=== PATIENT | male | born 1995 | race African-American/Black ===

== ENCOUNTER 2024-05-12 11:30 | Outpatient (AMB) | payer BC, SELFPAY ==
--- NOTE | 2024-05-12 11:40 | A.OFFPC_ITS ---
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 Intake Note: New patient visit Chemist Enzymes Required: No Allergies No Known Allergies Allergy (Verified 05/12/24 11:40) Medication List - Last Reconciled 05/12/24 by Moni Benitez PA-C No Known Home Meds Tobacco use date assessed: 05/12/24 Dental Screening Dental Screen Date: 05/12/24 Did you have a dental visit in the last 12 months?: Yes Did you have a dental problem in the last 6 months where you did not have access to dental care?: No Was dental information given to patient?: Patient has dentist HPI 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 He is transferring from pediatrics. Psych: He has a hx of anxiety and adhd in childhood and was on medication in the past but thinks he has coping mechanisms now and does not need anything. CV: Blood pressure today in the office initially is 143/92. A little later the repeated blood pressure was 126/88. Endo: he thinks at one point he was a prediabetic. No polyuria or polydipsia. Unknown fam hx of dm. Uro: He is worried about the possibility of testicular cancer. States that sometimes his testicles feel swollen but no pain or specific mass. Both of his maternal cousins have had testicular cancer. surgical hx of appendectomy. Maternal grandmother had breast ca, maternal aunt also had heart disease and breast cancer (unknown genetic status), cousins have had testicular cancer [facility] Surgical History (Updated 05/12/24 @ 11:42 by Janel Swain CMA) Hx of appendectomy Family History (Updated 05/12/24 @ 11:44 by Janel Swain CMA) Maternal Aunt Breast cancer Maternal Grandmother Breast cancer Other Lupus (systemic lupus erythematosus) Testicular cancer Social History Housing: Apartment Patient Tobacco Use Status: Current everyday Tobacco user Cigarettes Per Day: 5 Years Smoked: 9 e-Cigarette/Vaping Use: Never Used Second Hand Smoke Exposure: No service: No Current occupational status: employed 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 1. Little interest or pleasure in doing things: not at all 2. Feeling down, depressed, or hopeless: not at all 3. Trouble falling or staying asleep, or sleeping too much: not at all 4. Feeling tired or having little energy: not at all 5. Poor appetite or overeating: not at all 6. Feeling bad about yourself - or that you are a failure or have let yourself or your family down: not at all 7. Trouble concentrating on things, such as reading the newspaper or watching television: not at all 8. Moving or speaking so slowly that other people could have noticed. Or the opposite - being so fidgety or restless that you have been moving around a lot more than usual: not at all 9. Thoughts that you would be better off or of hurting yourself in some way: not at all Total score: 0 Depression Screening Interpretation: Negative Depression Screening Done: Yes 98164 - PHQ-9 Billing: Yes Source: Developed by Drs. Saturnino Castro, Yaa Alexandra, Anderson Thopmson and colleagues, with an educational bev from [employer]. Thrive Questionnaire I am a: Patient What is your living situation today?: I have a steady place to live Within the past 12 months, did the food you bought not last and you didn't have the money to get more?: Never true Within the past 12 months, did you worry whether your food would run out before you got money to buy more?: Never true Do you have trouble paying for medicines?: No Do you have trouble getting transportation to medical appointments?: No Do you have trouble paying your heating and electricity bill?: No Do you have trouble taking care of your child, family member or friend?: No Do you have trouble with day-to-day activities such as bathing, preparing meals, shopping, managing finances, etc.?: No Are you currently unemployed and looking for a job?: No Are you interested in more education?: No Please select the resources that you would like help with: None Currently or been in a relationship where the following occur: No concerns reported THRIVE Score: 0 AUDIT C Alcohol Use Questionnaire (AUDIT-C) 1. How often do you have a drink containing alcohol?: 2-4 times a month 2. How many drinks containing alcohol do you have on a typical day when you are drinking?: 1 or 2 3. How often do you have six or more drinks on one occasion?: Never Total Score: 2 Score Reviewed/Action Taken: Yes SHAUN-7 AMB Questionnaire SHAUN-7 Feeling nervous, anxious, or on edge: 0 = Not at all Not being able to stop or control worryin = Not at all Worrying too much about different things: 0 = Not at all Trouble relaxin = Not at all Being so restless that it is hard to sit still: 0 = Not at all Becoming easily annoyed or irritable: 0 = Not at all Feeling afraid as if something awful might happen: 0 = Not at all Total SHAUN-7 score (0-4 normal; 5-9 mild; 10-14 moderate; 15-21 severe): 0 Source: Developed by Drs. Saturnino Castro, Yaa Alexandra, Anderson Thompson and colleagues, with an educational bev from [employer]. SHAUN-7 Assessment Billing SHAUN-7 Assessment Tool: SHAUN-7 Assessment 21200 Physical exam (Primary Care) Vital Signs: Last Vital Signs Pulse 89 05/12/24 11:44 BP 143/92 H 05/12/24 11:44 Pulse Ox 98 05/12/24 11:44 Oxygen Delivery Method Room Air 05/12/24 11:44 BMI result Body Mass Index 32.7 BMI Assessment/Plan discussion: High BMI High, discussed plan: lifestyle, dietary and physical activity Depression Screening Interpretation: Negative Currently or been in a relationship where the following occur: No concerns reported Const Orientation/consciousness: patient oriented x3 HENMT Ears: hearing grossly normal bilaterally Neck Thyroid: Thyroid normal Lymphatic: no lymphadenopathy noted Resp Auscultation: clear to auscultation bilaterally Cardio Rate: regular rate Rhythm: regular rhythm Heart sounds: S1 normal heart sound present and S2 normal heart sound present GI Inspection: Yes normal to inspection Palpation (GI): Soft to palpation and Other GI palpation findings present (nontender, no cva tenderness) Auscultation: normoactive bowel sounds Rectal Exam - Male: Yes deferred Other: Declined Skin General skin exam: no rashes or lesions noted Neuro General: patient oriented x3, gait normal and no focal motor deficits Coding Level of Care Code New Pt Level 3 (55101) Complex EM visit Add On G2211 Diagnoses Prediabetes R73.03 Tobacco abuse Z72.0 Elevated blood pressure reading R03.0 Swelling of the testicles N50.89 Additional Codes PHQ-9 - 73400 - PHQ-9 Billing: Yes ([id number]) SHAUN-7 Assessment Billing - SHAUN-7 Assessment Tool: SHAUN-7 Assessment 43980 ([id number]) Assessment & Plan Assessment & Plan (1) Prediabetes: Code(s): R73.03 - Prediabetes Category: Medical Plan: Labs ordered today. We will check A1c. (2) Tobacco abuse: Code(s): Z72.0 - Tobacco use Category: Medical Plan: Encouraged smoking cessation. Offered Chantix or Wellbutrin but declines at this point. (3) Elevated blood pressure reading: Code(s): R03.0 - Elevated blood-pressure reading, without diagnosis of hypertension Category: Medical Plan: Advised to reduce caffeine and cigarettes. Encouraged dietary and lifestyle modifications. We will recheck in 1-2 months. (4) Swelling of the testicles: Code(s): N50.89 - Other specified disorders of the male genital organs Category: Medical Plan: Ultrasound and urine ordered. Labs ordered. We will follow up pending test results. Orders: Orders Complete Blood Count Auto Diff Today R03.0 - Elevated blood-pressure reading, without diagnosis of hypertension, R73.03 - Prediabetes, Z11.3 - Encounter for screening for infections with a predominantly sexual mode of transmission, Z72.0 - Tobacco use Hemoglobin A1c Today R03.0 - Elevated blood-pressure reading, without diagnosis of hypertension, R73.01 - Impaired fasting glucose, R73.03 - Prediabetes, Z11.3 - Encounter for screening for infections with a predominantly sexual mode of transmission, Z72.0 - Tobacco use TSH reflex Free T4 Today R03.0 - Elevated blood-pressure reading, without diagnosis of hypertension, R73.03 - Prediabetes, Z11.3 - Encounter for screening for infections with a predominantly sexual mode of transmission, Z72.0 - Tobacco use HIV Ab/Ag Today R03.0 - Elevated blood-pressure reading, without diagnosis of hypertension, R73.03 - Prediabetes, Z11.3 - Encounter for screening for infections with a predominantly sexual mode of transmission, Z20.2 - Contact with and (suspected) exposure to infections with a predominantly sexual mode of transmission, Z72.0 - Tobacco use Hepatitis C Antibody Today R03.0 - Elevated blood-pressure reading, without diagnosis of hypertension, R73.03 - Prediabetes, Z11.3 - Encounter for screening for infections with a predominantly sexual mode of transmission, Z20.2 - Contact with and (suspected) exposure to infections with a predominantly sexual mode of transmission, Z72.0 - Tobacco use Syphilis Screen Today R03.0 - Elevated blood-pressure reading, without diagnosis of hypertension, R73.03 - Prediabetes, Z11.3 - Encounter for screening for infections with a predominantly sexual mode of transmission, Z20.2 - Contact with and (suspected) exposure to infections with a predominantly sexual mode of transmission, Z72.0 - Tobacco use Comprehensive [place]. Panel Fast Today R03.0 - Elevated blood-pressure reading, without diagnosis of hypertension, R73.03 - Prediabetes, Z11.3 - Encounter for screening for infections with a predominantly sexual mode of transmission, Z72.0 - Tobacco use Lipid Panel Today R03.0 - Elevated blood-pressure reading, without diagnosis of hypertension, R73.03 - Prediabetes, Z11.3 - Encounter for screening for infections with a predominantly sexual mode of transmission, Z72.0 - Tobacco use CT NG by PCR Today R03.0 - Elevated blood-pressure reading, without diagnosis of hypertension, R73.03 - Prediabetes, Z11.3 - Encounter for screening for infections with a predominantly sexual mode of transmission, Z20.2 - Contact with and (suspected) exposure to infections with a predominantly sexual mode of transmission, Z72.0 - Tobacco use US scrotum Today N50.89 - Other specified disorders of the male genital organs
[2024-05-12 11:44] VITALS: BP 143/92; PULSE 89; O2SAT 98; BMI 32.7
[2024-05-12 11:52] VITALS: BP 126/88
== END 2024-05-12 12:24 | disposition home or self-care (01) ==
PROVIDERS: PCP Family Medicine; Visit Provider Physician Assistant
DX: Z23 Encounter for immunization (principal)

== ENCOUNTER → 2024-05-12 11:30 | Outpatient (BNVA) | payer BC, SELFPAY | PROVIDERS: PCP Family Medicine; Visit Provider Physician Assistant | DX: R73.03 Prediabetes (principal); Z23 Encounter for immunization; R03.0 Elevated blood-pressure reading, without diagnosis of hypertension; N50.89 Other specified disorders of the male genital organs; Z72.0 Tobacco use | CPT/HCPCS: 90471; 90656; 96127 ==

== ENCOUNTER 2024-05-19 16:13 | Outpatient (REF) | payer BC, SELFPAY ==
--- NOTE | ~2024-05-19 | US_ITS ---
CLINICAL HISTORY: N50.89 - Other specified disorders of the male genital organs US Scrotum with Doppler Comparison: None Findings: Right testicle normal size and echotexture, 4.3 x 2.9 x 3.3 cm. Left testicle normal size and echotexture, 4 x 2.5 x 3.4 cm. Color Doppler and arterial/venous spectral tracings of testicles within normal limits. Epididymides are unremarkable. No varicoceles. No hydroceles. IMPRESSION: Normal scrotal ultrasound. No evidence of torsion. This document has been electronically signed by: Ximena Rolle MD on 05/23/2024 13:44:38
== END 2024-05-19 16:14 | disposition home or self-care (01) ==
LOC: HO.US 16:13
PROVIDERS: PCP Physician Assistant; Visit Provider Physician Assistant
DX: N50.89 Other specified disorders of the male genital organs (principal)
CPT/HCPCS: 76870

== ENCOUNTER → 2024-05-19 16:15 | Outpatient (BNV) | payer BC, SELFPAY | PROVIDERS: PCP Physician Assistant; Visit Provider Nuclear Medicine | DX: N50.89 Other specified disorders of the male genital organs (principal) | CPT/HCPCS: 76870; 93976 ==

== ENCOUNTER 2024-06-04 08:47 | Outpatient (REF) | payer BC, SELFPAY ==
--- OUTSIDE RECORDS SUMMARY | 2024-06-04 08:50 | XMS_ITS | Clinical Summary ---
Author Organization [facility] ity Address [address] [place] [address] Care Team Providers Care Traffic Rate Computer Name Role Phone Unavailable Primary Care Provider Unavailabl e Social History Tobacco Use Types Packs/Day Years Used Date Smoking Tobacco: Never Assessed Sex and Gender Information Value Date Recorded Sex Assigned at Not on file Gender Identity Not on file Sexual Orientation Not on file Plan of Treatment Health Maintenance Due Date Last Done Comments DTaP,Tdap,and Td Vaccines (1 - Tdap) 2012 Hepatitis B Vaccines (1 of 3 - 19+ 3-dose series) 2012 Depression Screening 04/09/2022 HIV Screening 04/09/2022 Hepatitis C Screening 04/09/2022 Social Influencers of Health Screening 04/09/2022 COVID-19 Vaccine (2023-2 5 season) 2024 Influenza Vaccine (#1) 2024 HIB Vaccines Aged Out No longer eligi ble based on patient's age to complete this topic HPV Vaccines Aged Out No longer eligi ble based on patient's age to complete this topic Hepatitis A Vaccines Aged Out No long er eligible based on patient's age to complete this topic IPV Vaccines Aged Out No longer eligi ble based on patient's age to complete this topic MMR Vaccines Aged Out No longer eligi ble based on patient's age to complete this topic Meningococcal ACWY Vaccine Aged Out N o longer eligible based on patient's age to complete this topic Pneumococcal Vaccine: Pediat rics (0 to 5 Years) and At-Risk Patients (6 to 64 Years) Aged Out No longer eligible b ased on patient's age to complete this topic RSV Immunization Patients Un elaina 20 months Aged Out No longer eligible b ased on patient's age to complete this topic Varicella Vaccines Aged Out No longer eligible based on patient's age to complete this topic
[2024-06-04 09:09] LABS: MANUAL DIFF FLAG NO
[2024-06-04 09:37] LABS: Basophils Percent Auto 0.4 % (0-2); Eosinophils Absolute Auto 0.2 X10*3/uL (0.0-0.4); Hematocrit 47.4 % (42.0-52.0); Imm Gran Abs Auto 0.01 X10*3/uL (0.00-0.03); Imm Gran Pct Auto 0.1 % (0.0-0.4); Lymphocytes Absolute Auto 2.7 X10*3/uL (1.2-4.9); Lymphocytes Percent Auto 37.6 % (20-40); Mean Corpuscular HGB Conc 33.8 g/dl (31.0-36.0); Mean Corpuscular Hemoglobin 29.8 pg (27.0-33.0); Mean Corpuscular Volume 88.3 fL (80.0-98.0); Mean Platelet Volume 11.1 fL (9.4-12.4); Monocytes Absolute Auto 0.6 X10*3/uL (0.1-1.2); Monocytes Percent Auto 7.9 % (2-11); Neutrophils Absolute Auto 3.7 x10*3/uL (2.0-8.3); Platelet Count 233 X10*3/uL (160-400); Red Blood Count 5.37 X10*6/uL (4.60-5.80); Red Cell Distribution Width 13.2 % (11.0-16.0); White Blood Count 7.2 X10*3/uL (4.8-10.8)
[2024-06-04 09:57] LABS: Estimated Average Glucose 103 mg/dL; Hemoglobin A1C 134.9447 umol/L; Hemoglobin A1c % 5.2 % (<6.0); Total Hemoglobin (HGBA1C) 4047.1566 umol/L
[2024-06-04 10:14] LABS: Alanine Aminotransferase 48 U/L (0-40); Albumin Level 4.4 g/dL (3.5-5.0); Alkaline Phosphatase 67 U/L (39-117); Anion Gap 10 (12-20); Aspartate Amino Transferase 28 U/L (5-37); Bilirubin Total 0.6 mg/dL (0.0-1.0); Blood Urea Nitrogen 13 mg/dL (9-16); Calcium 9.1 mg/dL (8.4-10.2); Carbon Dioxide 26 mmol/L (22-29); Chloride 108 mmol/L (96-108); Cholesterol 199 mg/dL (<200); Estimated Glomerular Filt Rate > 60; Glucose Fasting 97 mg/dL (60-99); HDL Cholesterol 36 mg/dL (>40); LDL Cholesterol Calculated 149 mg/dL (<100); Potassium 4.3 mmol/L (3.3-5.1); Sodium 140 mmol/L (135-145); Total Protein 7.6 g/dL (6.5-8.0); Triglycerides 73 mg/dL (<150)
[2024-06-04 10:31] LABS: HIV AB/AG Nonreactive (Nonreactive); HIV Num 1 0.04 S/CO (0.00-0.99); TSH reflex Free T4 0.69 uIU/mL (0.32-4.0); ~HepC Num1 0.06 S/CO (0.00-0.79); ~Hepatitis C Antibody Nonreactive (Nonreactive)
[2024-06-04 11:34] LABS: Syphilis Screen Nonreactive (Nonreactive)
[2024-06-04 11:49] LABS: CT PCR NOT DETECTED (Not Detect.); NG PCR NOT DETECTED (Not Detect.)
== END 2024-06-04 08:48 | disposition home or self-care (01) ==
LOC: HO.LAB 08:47
PROVIDERS: PCP Physician Assistant; Visit Provider Physician Assistant
DX: R73.03 Prediabetes (principal); Z72.0 Tobacco use; R03.0 Elevated blood-pressure reading, without diagnosis of hypertension; Z11.3 Encounter for screening for infections with a predominantly sexual mode of transmission; Z20.2 Contact with and (suspected) exposure to infections with a predominantly sexual mode of transmission; R73.01 Impaired fasting glucose
CPT/HCPCS: 80053; 80061; 83036; 84443; 85025; 86780; 86803; 87389; 87491; 87591

== ENCOUNTER 2024-07-14 15:27 | Outpatient (AMB) | payer BC, SELFPAY ==
--- NOTE | 2024-07-14 15:29 | A.OFFPC_ITS ---
Vital Signs 07/14/24 15:31 Height 5 ft 11.5 in Weight 242 lb 6 oz BMI 33.3 BP 116/62 Blood Pressure Location Lt brachial Position Sitting Respiration 14 Pulse 86 Pulse Source Pulse Oximeter Pulse Oximetry (%) 98 Oxygen Delivery Method Room Air Intake Visit Reasons: bp check and physical Intake Note: Physical and blood pressure check. Field Representative Required: No Allergies No Known Allergies Allergy (Verified 07/14/24 15:31) Medication List - Last Reconciled 07/14/24 by Moni Benitez PA-C carbamide peroxide 6.5% (Debrox) 5 drps otic (ear) right Q12H 7 days Tobacco use date assessed: 07/14/24 Dental Screening Dental Screen Date: 05/12/24 HPI bp check and physical HPI Details Patient is a 29-year-old male who presents today for a physical exam. He wants to address his adhd. Psych: He has a hx of anxiety and adhd in childhood and was on medication in the past but can not recall the name of it. He states that he lacks motivation at times and struggles with focus and attention to detail. CV: Blood pressure today in the office is WNL. surgical hx of appendectomy. Maternal grandmother had breast ca, maternal aunt also had heart disease and breast cancer (unknown genetic status), cousins have had testicular cancer [facility] Surgical History (Updated 05/12/24 @ 11:42 by Janel Swain CMA) Hx of appendectomy Family History (Updated 05/12/24 @ 11:44 by Janel Swain CMA) Maternal Aunt Breast cancer Maternal Grandmother Breast cancer Other Lupus (systemic lupus erythematosus) Testicular cancer Social History Housing: Apartment Patient Tobacco Use Status: Current everyday Tobacco user Cigarettes Per Day: 5 Years Smoked: 9 e-Cigarette/Vaping Use: Never Used Second Hand Smoke Exposure: No service: No Current occupational status: employed 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 Current occupational exposures/hazards: No Cognitive needs: No Hearing needs: No Vision needs: Yes (glasses) Questionnaire Thrive Questionnaire Date Thrive assessed: 05/12/24 I am a: Patient What is your living situation today?: I have a steady place to live Within the past 12 months, did the food you bought not last and you didn't have the money to get more?: Never true Within the past 12 months, did you worry whether your food would run out before you got money to buy more?: Never true Do you have trouble paying for medicines?: No Do you have trouble getting transportation to medical appointments?: No Do you have trouble paying your heating and electricity bill?: No Do you have trouble taking care of your child, family member or friend?: No Do you have trouble with day-to-day activities such as bathing, preparing meals, shopping, managing finances, etc.?: No Are you currently unemployed and looking for a job?: No Are you interested in more education?: No Please select the resources that you would like help with: None Currently or been in a relationship where the following occur: No concerns reported THRIVE Score: 0 Physical exam (Primary Care) Vital Signs: Last Vital Signs Pulse 86 07/14/24 15:31 Resp 14 07/14/24 15:31 BP 116/62 07/14/24 15:31 Pulse Ox 98 07/14/24 15:31 Oxygen Delivery Method Room Air 07/14/24 15:31 BMI result Body Mass Index 33.3 Tobacco/Smoking Status: Tobacco use Status Tobacco use date assessed 07/14/24 07/14/24 15:34 Patient Tobacco Use Status Current everyday Tobacco 07/14/24 15:34 e-Cigarette/Vaping Use Never Used 07/14/24 15:34 Thrive Assessment: Date of Thrive Assessment Date Thrive assessed 05/12/24 07/14/24 15:34 Currently or been in a relationship where the following occur: No concerns reported Const Orientation/consciousness: patient oriented x3 HENMT Ears: hearing grossly normal bilaterally and TM's normal bilaterally General nose exam: No nasal polyps present Face and sinus: Yes sinuses nontender Mouth: Normal oral and palatal mucosa present Eyes Pupils: Equal, round and reactive pupils present EOM: EOMs intact bilaterally Neck Neck: Yes full ROM and Yes no lymphadenopathy Thyroid: Thyroid normal Chest Chest palpation & inspection: normal inspection of the chest Resp Auscultation: clear to auscultation bilaterally Cardio Rate: regular rate Rhythm: regular rhythm Heart sounds: S1 normal heart sound present and S2 normal heart sound present Peripheral pulses: Peripheral pulses 2+ throughout GI Other: Soft, nontender Auscultation: normal bowel sounds Rectal Exam - Male: Yes deferred General: Yes no CVA tenderness Back/Spine/Pelvis Other: Nontender Back: no CVA tenderness Skin General skin exam: no rashes or lesions noted Neuro General: patient oriented x3, gait normal, CN's II-XI intact bilaterally and deep tendon reflexes 2+ bilaterally Cranial nerves: Yes Equal, round and reactive pupils present Motor exam (neuro): 5/5 motor strength present throughout Sensory Exam: double simultaneous stimulation for sensation normal Coordination: [id number] test normal and Romberg test negative Extrem General: Yes normal to inspection and Yes full ROM Psych Affect: normal affect Attitude: cooperative Thought process: Normal thought process present Thought content: Normal thought content present Insight: Good insight present (Psych) Judgement: Good judgement present (Psych) Coding Level of Care Code Est Pt Prev Care 18-39y(95469) Diagnoses Routine general medical examination at a health care facility Z00.00 ADHD (attention deficit hyperactivity disorder) F90.9 Assessment & Plan Assessment & Plan (1) Routine general medical examination at a health care facility: Code(s): Z00.00 - Encounter for general adult medical examination without abnormal findings Plan: Health maintenance and labs reviewed. (2) ADHD (attention deficit hyperactivity disorder): Code(s): F90.9 - Attention-deficit hyperactivity disorder, unspecified type Category: Medical Plan: I have referred him to Psychiatry. I will start him on Wellbutrin. Discussed risks and benefits and adverse effects of the medication. Orders: Referrals Psychiatry Referral F41.1 - Generalized anxiety disorder, F90.9 - Attention- deficit hyperactivity disorder, unspecified type Medications: New bupropion HCl XL (Wellbutrin XL) 150 mg PO QAM 90 tabs 0RF carbamide peroxide 6.5% (Debrox) 5 drps otic (ear) right Q12H 7 days 15 mL 0RF
[2024-07-14 15:31] VITALS: BP 116/62; PULSE 86; RESP 14; O2SAT 98; BMI 33.3
--- OUTSIDE RECORDS SUMMARY | 2024-07-14 18:56 | XMS_ITS | Data Portability ---
Author Organization [facility] Address [address] [place] [address] Assessment No assessment recorded. Plan of Treatment Reminders Order Date Submit Date Provider Last Modified By Organization Details Last Modified Time Details Appointments None record ed. Lab None record ed. Referral None record ed. Procedures None record ed. Surgeries None record ed. Imaging None record ed. Medication Orders None record ed. Patient TargetsNo targets recorded. Patient InstructionsNo instructions recorded. Reason for Referral None Reported. Medical Equipment None Reported. Medications Name Sig Start Date Stop Date Status Note LastModified by Organization Details LastModified Time amoxicillin 500 mg capsule TAKE 1 CAPSULE BY MOUTH EVERY 8 HOURS active Not Available Not Available No t Available ibuprofen 800 mg tablet TAKE 1 TABLET BY MOUTH THREE TIMES A DAY WITH FOOD active Not Available Not Available No t Available Vitals None Recorded Social History None recorded. Functional Status None recorded. Mental Status None recorded. Family History Nothing Reported. Medical History No medical history recorded. Past Encounters Encounter ID Performer Location Encounter Start Date Encounter Closed Date Diagnosis/Indication Diagnosis SNOMED-CT Code Diagnosis ICD10 Code Diagnosis Note [id number] [address] [place] [address] 04/27/2020 08:02:54 04/27/2020 08:50:46 [id number] [address] [place] [address] 05/25/2015 18:18:21 05/25/2015 18:39:57 [id number] [address] [place] [address] 09/18/2020 12:45:23 09/18/2020 15:09:53 [id number] [address] [facility] [place] [address] 08/02/2019 14:55:55 08/02/2019 16:04:27 [id number] [address] [facility] [place] [address] 07/14/2016 17:15:46 07/14/2016 18:24:17 [id number] [address] [place] [address] 09/03/2019 13:44:39 09/03/2019 14:27:19 Health Concerns Section Related Observation LastModified by Organization Detai ls LastModified Time None Recorded Concern Status LastModified by Organization Details LastModified Time None Recorded Advance Directives Directive None Recorded Payers Encounter Date Sequence Insurance Name Policy Number Policy Knight Covered Member ID Knight Member ID Guarantor Name 07/14/2016 1 [place] [id number] Mario Alberto T Luann [id number] Mario Alberto Luann 08/02/2019 1 [place] [id number] Mario Alberto T Luann [id number] Mario Alberto Luann 09/03/2019 1 [place] [id number] Mario Alberto T Luann [id number] Mario Alberto Luann 04/27/2020 1 [place] [id number] Mario Alberto T Luann [id number] Mario Alberto Luann 09/18/2020 1 [place] [id number] Mario Alberto T Luann [id number] Mario Alberto Luann
--- OUTSIDE RECORDS SUMMARY | 2024-07-14 18:56 | XMS_ITS | Clinical Summary ---
[facility] Organization [facility] Address [address] [place] [address] Care Team Providers Care Counselor Marriage And Family Name Role Phone Unavailable Primary Care Provider Unavailabl e Social History Tobacco Use Types Packs/Day Years Used Date Smoking Tobacco: Never Assessed Sex and Gender Information Value Date Recorded Sex Assigned at Not on file Legal Sex Male 2:35 PM EST Gender Identity Not on file Sexual Orientation Not on file Plan of Treatment Health Maintenance Due Date Last Done Comments DTaP,Tdap,and Td Vaccines (1 - Tdap) 2012 Hepatitis B Vaccines (1 of 3 - 19+ 3-dose series) 2012 Depression Screening 04/09/2022 HIV Screening 04/09/2022 Hepatitis C Screening 04/09/2022 Social Influencers of Health Screening 04/09/2022 COVID-19 Vaccine ( - 2023-2 5 season) 2024 Influenza Vaccine (#1) 2024 [...] patient's age to complete this topic Meningococcal B Vacine Aged Out No lo nger eligible based on patient's age to complete [...]
== END 2024-07-14 16:02 | disposition home or self-care (01) ==
PROVIDERS: PCP Physician Assistant; Visit Provider Physician Assistant
DX: Z00.00 Encounter for general adult medical examination without abnormal findings (principal); F90.9 Attention-deficit hyperactivity disorder, unspecified type

== ENCOUNTER → 2024-07-14 15:27 | Outpatient (BNVA) | payer BC, SELFPAY | PROVIDERS: PCP Physician Assistant; Visit Provider Physician Assistant ==

== ENCOUNTER 2024-09-01 10:41 | Outpatient (AMB) | payer BC, SELFPAY ==
--- NOTE | 2024-09-01 10:47 | MHC.PC.OV ---
Vital Signs 09/01/24 10:48 Height 5 ft 11.5 in Weight 239 lb 6 oz BMI 32.9 BP 116/82 Blood Pressure Location Rt brachial Position Sitting Respiration 16 Pulse 86 Pulse Source Pulse Oximeter Pulse Oximetry (%) 98 Oxygen Delivery Method Room Air Intake Visit Reasons: medication Allergies No Known Allergies Allergy (Verified 07/14/24 15:31) Medication List - Last Reconciled 09/01/24 by Moni Benitez PA-C Tobacco use date assessed: 09/01/24 Dental Screening Dental Screen Date: 05/12/24 HPI medication HPI Details Patient is a 29-year-old male who presents today for a f/u regarding anxiety and adhd. Psych: He has a hx of anxiety and adhd in childhood and was on medication in the past but can not recall the name of it. He states that he lacks motivation at times and struggles with focus and attention to detail. He trialed Wellbutrin for the last 6 weeks and has not noticed any symptom improvement. CV: Blood pressure today in the office is WNL. surgical hx of appendectomy. Maternal grandmother had breast ca, maternal aunt also had heart disease and breast cancer (unknown genetic status), cousins have had testicular cancer PFSH Surgical History (Updated 05/12/24 @ 11:42 by Janel Swain CMA) Hx of appendectomy Family History (Updated 05/12/24 @ 11:44 by Janel Swain CMA) Maternal Aunt Breast cancer Maternal Grandmother Breast cancer Other Lupus (systemic lupus erythematosus) Testicular cancer Social History (Updated 09/01/24 @ 10:53 by Janel Swain CMA) Housing: Apartment Alcohol intake: current Patient Tobacco Use Status: Current everyday Tobacco user Cigarettes Per Day: 5 Years Smoked: 9 e-Cigarette/Vaping Use: Never Used Second Hand Smoke Exposure: No service: No Current occupational status: employed 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 Current occupational exposures/hazards: No Cognitive needs: No Hearing needs: No Vision needs: Yes (glasses) Questionnaire Thrive Questionnaire Date Thrive assessed: 05/12/24 I am a: Patient What is your living situation today?: I have a steady place to live Within the past 12 months, did the food you bought not last and you didn't have the money to get more?: Never true Within the past 12 months, did you worry whether your food would run out before you got money to buy more?: Never true Do you have trouble paying for medicines?: No Do you have trouble getting transportation to medical appointments?: No Do you have trouble paying your heating and electricity bill?: No Do you have trouble taking care of your child, family member or friend?: No Do you have trouble with day-to-day activities such as bathing, preparing meals, shopping, managing finances, etc.?: No Are you currently unemployed and looking for a job?: No Are you interested in more education?: No Please select the resources that you would like help with: None Currently or been in a relationship where the following occur: No concerns reported THRIVE Score: 0 Physical exam (Primary Care) Vital Signs: Last Vital Signs Pulse 86 09/01/24 10:48 Resp 16 09/01/24 10:48 BP 116/82 09/01/24 10:48 Pulse Ox 98 09/01/24 10:48 Oxygen Delivery Method Room Air 09/01/24 10:48 BMI result Body Mass Index 32.9 Tobacco/Smoking Status: Tobacco use Status Tobacco use date assessed 09/01/24 09/01/24 10:51 Patient Tobacco Use Status Current everyday Tobacco 09/01/24 10:53 e-Cigarette/Vaping Use Never Used 09/01/24 10:53 Thrive Assessment: Date of Thrive Assessment Date Thrive assessed 05/12/24 09/01/24 10:51 Currently or been in a relationship where the following occur: No concerns reported Const Orientation/consciousness: patient oriented x3 HENMT Ears: hearing grossly normal bilaterally Neck Thyroid: Thyroid normal Lymphatic: no lymphadenopathy noted Resp Auscultation: clear to auscultation bilaterally Cardio Rate: regular rate Rhythm: regular rhythm Heart sounds: S1 normal heart sound present and S2 normal heart sound present GI Inspection: Yes normal to inspection Palpation (GI): Soft to palpation and Other GI palpation findings present (nontender, no cva tenderness) Auscultation: normoactive bowel sounds Rectal Exam - Male: Yes deferred Skin General skin exam: no rashes or lesions noted Neuro General: patient oriented x3, gait normal and no focal motor deficits Coding Level of Care Code Est Pt Level 4 (61324) Complex EM visit Add On G2211 Diagnoses ADHD (attention deficit hyperactivity disorder) F90.9 Dyslipidemia E78.5 Assessment & Plan Assessment & Plan (1) ADHD (attention deficit hyperactivity disorder): Code(s): F90.9 - Attention-deficit hyperactivity disorder, unspecified type Category: Medical Plan: We will trial Vyvanse. Discussed risks and benefits and adverse effects of this medication. He will follow up in a couple of months to be reassessed. Sooner if needed. We did discuss he will let me know if he develops any side effects like palpitations, elevated blood pressure, insomnia, mood changes etc. (2) Dyslipidemia: Code(s): E78.5 - Hyperlipidemia, unspecified Category: Medical Plan: He is working on a low-fat diet. He has lost a few lb since our last visit. He will complete labs prior to our next appointment. Medications: New lisdexamfetamine (Vyvanse) Partial Fill upon patient request. 30 mg PO QAM 30 caps 0RF
[2024-09-01 10:48] VITALS: BP 116/82; PULSE 86; RESP 16; O2SAT 98; BMI 32.9
--- OUTSIDE RECORDS SUMMARY | 2024-09-01 12:28 | XMS_ITS | Clinical Summary ---
Author Organization [facility] ity Address [address] [place] [address] Care Team Providers Care Landcare Officer Name Role Phone Unavailable Primary Care Provider [...] - 2023-2 5 season) 2024 Influenza Vaccine (Season Ended) 2025 HIB Vaccines Aged Out No longer eligi [...] age to complete this topic Meningococcal B Vaccine Aged Out No l onger eligible based on patient's age to complete [...]
== END 2024-09-01 11:09 | disposition home or self-care (01) ==
LOC: HO.HMCFM 10:42
PROVIDERS: PCP Physician Assistant; Visit Provider Physician Assistant
DX: F90.9 Attention-deficit hyperactivity disorder, unspecified type (principal); E78.5 Hyperlipidemia, unspecified

== ENCOUNTER → 2024-09-01 10:41 | Outpatient (BNVA) | payer BC, SELFPAY | PROVIDERS: PCP Physician Assistant; Visit Provider Physician Assistant | DX: Z13.89 Encounter for screening for other disorder (principal) ==

== ENCOUNTER 2024-10-29 10:32 | Outpatient (REF) | payer BC, SELFPAY ==
[2024-10-29 11:38] LABS: Alanine Aminotransferase 32 U/L (0-40); Albumin Level 4.3 g/dL (3.5-5.0); Alkaline Phosphatase 66 U/L (39-117); Aspartate Amino Transferase 36 U/L (5-37); Bilirubin Direct 0.2 mg/dL (0.0-0.5); Bilirubin Total 0.4 mg/dL (0.0-1.0); Cholesterol 130 mg/dL (<200); HDL Cholesterol 34 mg/dL (>40); LDL Cholesterol Calculated 83 mg/dL (<100); Total Protein 6.6 g/dL (6.5-8.0); Triglycerides 67 mg/dL (<150)
== END 2024-10-29 10:33 | disposition home or self-care (01) ==
LOC: HO.LAB 10:32
PROVIDERS: PCP Physician Assistant; Visit Provider Physician Assistant
DX: E78.5 Hyperlipidemia, unspecified (principal)
CPT/HCPCS: 36415; 80061; 80076

== ENCOUNTER 2024-11-03 10:09 | Outpatient (AMB) | payer BC, SELFPAY ==
--- NOTE | 2024-11-03 10:14 | MHC.PC.OV ---
Vital Signs 11/03/24 10:15 Height 5 ft 11.5 in Weight 218 lb BMI 30.0 BP 132/84 Blood Pressure Location Rt brachial Position Sitting Respiration 14 Pulse 86 Pulse Source Pulse Oximeter Temp 98.3 F Temp Source Oral Pulse Oximetry (%) 97 Oxygen Delivery Method Room Air Intake Visit Reasons: labs prior, med f/u Intake Note: Labs and medication follow up Centrifugal Operator Required: No Allergies No Known Allergies Allergy (Verified 11/03/24 13:44) Medication List - Last Reconciled 11/03/24 by Moni Benitez PA-C Tobacco use date assessed: 11/03/24 Dental Screening Dental Screen Date: 05/12/24 HPI labs prior, med f/u HPI Details Patient is a 29-year-old male who presents today for a f/u regarding anxiety and adhd. Psych: He has a hx of anxiety and adhd in childhood and was on medication in the past but can not recall the name of it. He states that he lacks motivation at times and struggles with focus and attention to detail. He trialed Wellbutrin but did not not noticed any symptom improvement. He was started on Vyvanse and feels that it is overall helpful but at home he noticed some increased irritability with it. CV: Blood pressure today in the office is WNL. surgical hx of appendectomy. Maternal grandmother had breast ca, maternal aunt also had heart disease and breast cancer (unknown genetic status), cousins have had testicular cancer [facility] Surgical History Hx of appendectomy Family History Maternal Aunt Breast cancer Maternal Grandmother Breast cancer Other Lupus (systemic lupus erythematosus) Testicular cancer Social History (Updated 11/03/24 @ 13:45 by Janel Swain CMA) Housing: Apartment Alcohol intake: current Patient Tobacco Use Status: Current everyday Tobacco user Cigarettes Per Day: 5 Years Smoked: 9 e-Cigarette/Vaping Use: Never Used Second Hand Smoke Exposure: No service: No Current occupational status: employed 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 Current occupational exposures/hazards: No Cognitive needs: No Hearing needs: No Vision needs: Yes (glasses) Questionnaire Thrive Questionnaire Date Thrive assessed: 05/12/24 I am a: Patient What is your living situation today?: I have a steady place to live Within the past 12 months, did the food you bought not last and you didn't have the money to get more?: Never true Within the past 12 months, did you worry whether your food would run out before you got money to buy more?: Never true Do you have trouble paying for medicines?: No Do you have trouble getting transportation to medical appointments?: No Do you have trouble paying your heating and electricity bill?: No Do you have trouble taking care of your child, family member or friend?: No Do you have trouble with day-to-day activities such as bathing, preparing meals, shopping, managing finances, etc.?: No Are you currently unemployed and looking for a job?: No Are you interested in more education?: No Please select the resources that you would like help with: None Currently or been in a relationship where the following occur: No concerns reported THRIVE Score: 0 AUDIT C Alcohol Use Questionnaire (AUDIT-C) 1. How often do you have a drink containing alcohol?: Monthly or less 2. How many drinks containing alcohol do you have on a typical day when you are drinking?: 1 or 2 3. How often do you have six or more drinks on one occasion?: Never Total Score: 1 Physical exam (Primary Care) Vital Signs: Last Vital Signs Temp 98.3 F 11/03/24 10:15 Pulse 86 11/03/24 10:15 Resp 14 11/03/24 10:15 BP 132/84 11/03/24 10:15 Pulse Ox 97 11/03/24 10:15 Oxygen Delivery Method Room Air 11/03/24 10:15 BMI result Body Mass Index 30.0 Tobacco/Smoking Status: Tobacco use Status Tobacco use date assessed 11/03/24 11/03/24 10:19 Patient Tobacco Use Status Current everyday Tobacco 11/03/24 10:19 e-Cigarette/Vaping Use Never Used 11/03/24 10:19 Thrive Assessment: Date of Thrive Assessment Date Thrive assessed 05/12/24 11/03/24 10:19 Currently or been in a relationship where the following occur: No concerns reported Const Orientation/consciousness: patient oriented x3 HENMT Ears: hearing grossly normal bilaterally Neck Thyroid: Thyroid normal Lymphatic: no lymphadenopathy noted Resp Auscultation: clear to auscultation bilaterally Cardio Rate: regular rate Rhythm: regular rhythm Heart sounds: S1 normal heart sound present and S2 normal heart sound present GI Inspection: Yes normal to inspection Palpation (GI): Soft to palpation and Other GI palpation findings present (nontender, no cva tenderness) Auscultation: normoactive bowel sounds Rectal Exam - Male: Yes deferred Skin General skin exam: no rashes or lesions noted Neuro General: patient oriented x3, gait normal and no focal motor deficits Coding Level of Care Code Est Pt Level 4 (53233) Complex EM visit Add On G2211 Diagnoses ADHD (attention deficit hyperactivity disorder) F90.9 Dyslipidemia E78.5 Assessment & Plan Assessment & Plan (1) ADHD (attention deficit hyperactivity disorder): Code(s): F90.9 - Attention-deficit hyperactivity disorder, unspecified type Category: Medical Plan: We will try Adderall. Discussed risks and benefits and adverse effects of this medication. (2) Dyslipidemia: Code(s): E78.5 - Hyperlipidemia, unspecified Category: Medical Plan: Significantly improved with diet changes. Medications: New dextroamphetamine-amphetamine 5 mg (Adderall) administer doses at least 4-6 hours apart; Partial Fill upon patient request. 5 mg PO BID 60 tabs 0RF 30 days
[2024-11-03 10:15] VITALS: BP 132/84; PULSE 86; RESP 14; TEMP 36.8; O2SAT 97
--- OUTSIDE RECORDS SUMMARY | 2024-11-03 11:42 | XMS_ITS | Data Portability ---
Author Organization [facility], [address] Address [address] [place] [address] Assessment No assessment recorded. Plan of Treatment [...] SNOMED-CT Code Diagnosis ICD10 Code Diagnosis Note [id number] [facility] [address] [place] [address] 04/27/2020 08:02:54 04/27/2020 08:50:46 [id number] [facility] [address] [place] [phone] 05/25/2015 18:18:21 05/25/2015 18:39:57 [id number] [facility] [address] [place] [phone] 09/18/2020 12:45:23 09/18/2020 15:09:53 [id number] [address] [address] [place] [address] 08/02/2019 14:55:55 08/02/2019 16:04:27 [id number] [address] [address] [place] [address] 07/14/2016 17:15:46 07/14/2016 18:24:17 [id number] [address] [place] [address] 09/03/2019 13:44:39 09/03/2019 14:27:19 Health Concerns Section Related Observation LastModified by Organization Detai ls LastModified Time None Recorded Concern Status LastModified by Organization Details LastModified Time None Recorded Advance Directives Directive None Recorded Payers Insurance Date Sequence Insurance Name Policy Number Policy Knight Covered Member ID Knigth Member ID Guarantor Name 09/29/2022 1 [employer] (PPO) [id number] Mario Alberto Kong [id number] Mario Alberto Kong 09/29/2022 1 [employer] (PPO) Mario Alberto Kong [id number] Mario Alberto Kong
== END 2024-11-03 10:47 | disposition home or self-care (01) ==
LOC: HO.HMCFM 10:10
PROVIDERS: PCP Physician Assistant; Visit Provider Physician Assistant
DX: F90.9 Attention-deficit hyperactivity disorder, unspecified type (principal); E78.5 Hyperlipidemia, unspecified

== ENCOUNTER → 2024-11-03 10:09 | Outpatient (BNVA) | payer BC, SELFPAY | PROVIDERS: PCP Physician Assistant; Visit Provider Physician Assistant | DX: Z13.89 Encounter for screening for other disorder (principal) ==

== ENCOUNTER 2024-12-08 08:46 | Outpatient (AMB) | payer BC, SELFPAY ==
--- NOTE | 2024-12-08 08:49 | A.OFFPC_ITS ---
Vital Signs 12/08/24 08:51 Height 5 ft 11.5 in Weight 217 lb 8 oz BMI 29.9 BP 138/80 Blood Pressure Location Lt brachial Position Sitting Respiration 14 Pulse 98 Pulse Source Pulse Oximeter Pulse Oximetry (%) 98 Oxygen Delivery Method Room Air Intake Visit Reasons: bp check and med check Intake Note: Blood pressure and medication check. Accountant Cost Required: No Allergies No Known Allergies Allergy (Verified 12/08/24 08:50) Medication List - Last Reconciled 12/08/24 by Moni Benitez PA-C dextroamphetamine-amphetamine 5 mg (Adderall) 5 mg PO BID 30 days Tobacco use date assessed: 12/08/24 Dental Screening Dental Screen Date: 05/12/24 HPI bp check and med check HPI Details Patient is a 29-year-old male who presents today for a f/u regarding anxiety and adhd. Psych: He has a hx of anxiety and adhd in childhood and was on medication in the past but can not recall the name of it. He states that he lacks motivation at times and struggles with focus and attention to detail. He trialed Wellbutrin but did not not noticed any symptom improvement. He was started on Vyvanse and feels that it is overall helpful but at home he noticed some increased irritability with it. He just started the Adderall a couple days ago. He does not notice a significant change with it. Msk: fell off a ladder about 5-6 steps up at work on 11/23. He went to [facility] and they did do xrays of the left leg and knee. He states most of the swelling is gone but he has continual discomfort in the anterior aspect of the knee and proximal portion of the lower leg. He states it does not feel unstable but he feels discomfort in it is hard with certain movements any twisting motion causes pain.. The knee is popping more than it ever has. He was initially on crutches for about a week. No prior surgeries to the left leg. He states that he tried to go to [facility] but they would not see him without a referral and then he went to another walk-in orthopedic place and they recommended that he does physical therapy. He states that they did repeat x-rays from the ER and did not see any acute changes other than swelling. surgical hx of appendectomy. Maternal grandmother had breast ca, maternal aunt also had heart disease and breast cancer (unknown genetic status), cousins have had testicular cancer PFSH Surgical History Hx of appendectomy Family History Maternal Aunt Breast cancer Maternal Grandmother Breast cancer Other Lupus (systemic lupus erythematosus) Testicular cancer Social History (Updated 11/03/24 @ 13:45 by Janel Swain CMA) Housing: Apartment Alcohol intake: current Patient Tobacco Use Status: Current everyday Tobacco user Cigarettes Per Day: 5 Years Smoked: 9 e-Cigarette/Vaping Use: Never Used Second Hand Smoke Exposure: No service: No Current occupational status: employed 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 Current occupational exposures/hazards: No Cognitive needs: No Hearing needs: No Vision needs: Yes (glasses) Questionnaire Thrive Questionnaire Date Thrive assessed: 05/12/24 I am a: Patient What is your living situation today?: I have a steady place to live Within the past 12 months, did the food you bought not last and you didn't have the money to get more?: Never true Within the past 12 months, did you worry whether your food would run out before you got money to buy more?: Never true Do you have trouble paying for medicines?: No Do you have trouble getting transportation to medical appointments?: No Do you have trouble paying your heating and electricity bill?: No Do you have trouble taking care of your child, family member or friend?: No Do you have trouble with day-to-day activities such as bathing, preparing meals, shopping, managing finances, etc.?: No Are you currently unemployed and looking for a job?: No Are you interested in more education?: No Please select the resources that you would like help with: None Currently or been in a relationship where the following occur: No concerns reported THRIVE Score: 0 AUDIT C Alcohol Use Questionnaire (AUDIT-C) 1. How often do you have a drink containing alcohol?: Monthly or less 2. How many drinks containing alcohol do you have on a typical day when you are drinking?: 1 or 2 3. How often do you have six or more drinks on one occasion?: Never Total Score: 1 Physical exam (Primary Care) Vital Signs: Last Vital Signs Pulse 98 12/08/24 08:51 Resp 14 12/08/24 08:51 BP 138/80 12/08/24 08:51 Pulse Ox 98 12/08/24 08:51 Oxygen Delivery Method Room Air 12/08/24 08:51 BMI result Body Mass Index 29.9 Tobacco/Smoking Status: Tobacco use Status Tobacco use date assessed 12/08/24 12/08/24 08:51 Patient Tobacco Use Status Current everyday Tobacco 12/08/24 08:51 e-Cigarette/Vaping Use Never Used 12/08/24 08:51 Thrive Assessment: Date of Thrive Assessment Date Thrive assessed 05/12/24 12/08/24 08:51 Currently or been in a relationship where the following occur: No concerns reported Const Orientation/consciousness: patient oriented x3 HENMT Ears: hearing grossly normal bilaterally Neck Thyroid: Thyroid normal Lymphatic: no lymphadenopathy noted Resp Auscultation: clear to auscultation bilaterally Cardio Rate: regular rate Rhythm: regular rhythm Heart sounds: S1 normal heart sound present and S2 normal heart sound present Skin General skin exam: no rashes or lesions noted Neuro General: patient oriented x3, gait normal and no focal motor deficits Extrem Other: The left knee is tender to palpation throughout. Increase discomfort on the anterior aspect. There is pain with valgus and varus stress. Negative anterior and posterior drawer test. There is some soft tissue swelling noted of the knee when compared to the right. General: Yes capillary refill normal Coding Level of Care Code Est Pt Level 4 (13391) Complex EM visit Add On G2211 Diagnoses Left knee pain M25.562 ADHD (attention deficit hyperactivity disorder) F90.9 Assessment & Plan Assessment & Plan (1) Left knee pain: Code(s): M25.562 - Pain in left knee Category: Medical Plan: Urgent Referral to ortho Work letter provided for light duty I will re-evaluate him in a couple of weeks. Requested notes from Lisa (2) ADHD (attention deficit hyperactivity disorder): Code(s): F90.9 - Attention-deficit hyperactivity disorder, unspecified type Category: Medical Plan: He will try taking 10 mg of the Adderall twice a day. We will do a short term follow up to reassess. Orders: Referrals Orthopedics Referral M25.562 - Pain in left knee
[2024-12-08 08:51] VITALS: BP 138/80; PULSE 98; RESP 14; O2SAT 98; BMI 29.9
--- OUTSIDE RECORDS SUMMARY | 2024-12-08 08:58 | XMS_ITS | Clinical Summary ---
Author Organization [facility] ity Address [address] [place] [address] Care Team Providers Care Group Product Manager Name Role Phone Unavailable Primary Care Provider [...] of 3 - 19+ 3-dose series) 2012 COVID-19 Vaccine (2023-2 5 season) 2024 Depression Screening 05/11/2024 Influenza Vaccine (#1) 2025 HIB Vaccines Aged Out No longer [...] 5 Years) and At-Risk Patients (6 to 49 Years) Aged Out No longer eligible b ased on patient's age to complete this topic RSV Immunization Patients Un elaina 20 months Aged Out No longer eligible b ased on patient's age to complete this topic Varicella Vaccines Aged Out No longer eligible based on patient's age to complete this topic
--- OUTSIDE RECORDS SUMMARY | 2024-12-08 08:58 | XMS_ITS | Clinical Summary ---
Author Organization [facility] Address [address] [place] [address] [place] [phone] Phone Care Team Providers Care Program Production Specialist Name Role Phone Moni Benitez Primary Care Provider +1- [phone] Allergies No known active allergies Medications lisdexamfetamin e (VYVANSE) 30 MG capsule Take 30 mg by mouth every morning. Active oxyCODONE 5 MG immediate release tablet Take 1 tablet (5 mg total) by mouth every 4 (four) hours as needed for pain (specific location in comments). Partial fill ok 5 tablet 11/29/19 25 Encounters Date Type Department Care Team Description 11/23/2024 1:02 PM EDT - 11/23/2024 4:29 PM EDT Emergency [facility] [address], [place] [id number] Discharge Disposition: Home or Self Care from Last 3 Months Social History Tobacco Use Types Packs/Day Years Used Date Smoking Tobacco: Every Day Cigarettes Tobacco Cessation:Ready to Q uit: Not Asked; Counseling Given: Not Answered Alcohol Use Standard Drinks/Week Comments Yes 0 (1 standard drink = 0.6 oz pur e alcohol) Education Answer Date Recorded Are you interested in more education? Not on dona e 11/23/2024 Are you concerned about learning? Not on file 11/23/2024 No 11/23/2024 No 11/23/2024 Digital Access Answer Date Recorded No 11/23/2024 No 11/23/2024 Reliable internet access at home? Not on file 11/23/2024 Device with a working camera? Not on file Intimate Partner Violence Answer Date R ecorded Are you denied basic needs s uch as food, clothing, or medical care? No 11/23/2024 In the past 12 months have y ou been in a relationship with a person who hurts, threatens, or tries to control you? No 11/23/2024 Are you denied basic needs s uch as food, clothing, or medical care? No 11/23/2024 In the past 12 months have y ou been in a relationship with a person who hurts, threatens, or tries to control you? No 11/23/2024 Sex and Gender Information Value Date Recorded Sex Assigned at Not on file Legal Sex Male 12:52 PM EDT Gender Identity Not on file Sexual Orientation Not on file Last Filed Vital Signs Vital Sign Reading Time Taken Comments Blood Pressure 136/70 11/23/2024 3:58 PM EDT Pulse 72 11/23/2024 3:58 PM EDT Temperature 36.8 C (98.2 F) 11/23/2024 3:58 PM EDT Respiratory Rate 16 11/23/2024 3:58 PM EDT Oxygen Saturation 97% 11/23/2024 3:58 PM EDT Inhaled Oxygen Concentration - - Weight 90.7 kg (200 lb) 11/23/2024 1:23 PM EDT Height 182.9 cm (6') 11/23/2024 1:23 PM EDT Body Mass Index 27.12 11/23/2024 1:23 PM EDT Plan of Treatment Health Maintenance Due Date Last Done Comments Adult Td,Tdap Booster 1993 DEPRESSION SCREENING 2005 SMOKING Hx and SMOKELESS TOB ACCO SCREENING 2006 HEPATITIS C SCREENING 2011 HIV ONE-TIME SCREENING (18-6 5 YEARS) 2011 PNEUMOCOCCAL VACCINES (0-49 years) (1 of 2 - PCV) 2012 COVID-19 VACCINE ( - 2023-2 5 season) 2024 HEPATITIS A VACCINES Aged Out No long er eligible based on patient's age to complete this topic HIB VACCINES Aged Out No longer eligi ble based on patient's age to complete this topic MENINGOCOCCAL VACCINES (ACWY) Aged Out No longer eligible based on patient's age to complete this topic MENINGOCOCCAL VACCINES (B) Aged Out N o longer eligible based on patient's age to complete this topic Medical Devices Not on file Procedures Procedure Name Priority Date/Time Associated Diagnosis Comments XR TIBIA FIBULA 2 VIEWS (LEFT) Routine 11/23/2024 2:23 PM EDT XR KNEE 4 OR MORE VIEWS (LEFT) Routine 11/23/2024 1:25 PM EDT from Last 3 Months Results * XR Tibia Fibula 2 Views (Left) (11/23/2024 2:23 PM EDT) Anatomical Region Laterality Modality Leg Left Computed Radiogr aphy 11/23/2024 2:40 PM EDT Impressions 11/23/2024 2:52 PM EDT No fracture or dislocation in the knee and tibia and fibula. Trace knee effusion. ATTESTATION: I, Moshe Thompson as teaching physician, have reviewed the images for this case and if necessary edited the report originally created by Ace Talamantes. Narrative 11/23/2024 2:52 PM EDT XR KNEE 4 OR MORE VIEWS (LEFT), XR TIBIA FIBULA 2 VIEWS (LEFT) Referring clinician's provided indication for this examination in Epic: Pain; S/P Fall COMPARISON: None. FINDINGS: No fracture. Normal alignment. Normal joint spaces. Trace suprapatellar effusion. No lytic or blastic lesion. Visualized portion of the ankle appears normal. No significant soft tissue swelling. Procedure Note Tad Thompson MD, MPH - 11/23/2024 XR KNEE 4 OR MORE VIEWS (LEFT), XR TIBIA FIBULA 2 VIEWS (LEFT) Referring clinician's provided indication for this examination in Epic:Pain; S/P Fall COMPARISON: None. FINDINGS: No fracture. Normal alignment. Normal joint spaces. Trace suprapatellareffusion. No lytic or blastic lesion. Visualized portion of the ankleappears normal. No significant soft tissue swelling. IMPRESSION: No fracture or dislocation in the knee and tibia and fibula. Trace kneeeffusion. ATTESTATION: Moshe Esquivel as teaching physician, have reviewed theimages for this case and if necessary edited the report originally createdby Ace Talamantes. Liana Hernandez PA-C IMG XR LOWER EXTREMITY Final Result * XR KNEE 4 OR MORE VIEWS (LEFT) (11/23/2024 1:25 PM EDT) Anatomical Region Laterality Modality Knee Left Computed Radiogr aphy 11/23/2024 2:40 PM EDT Impressions 11/23/2024 2:52 PM EDT No fracture or dislocation in the knee and tibia and fibula. Trace knee effusion. ATTESTATION: Moshe Esquivel as teaching physician, have reviewed the images for this case and if necessary edited the report originally created by Ace Talamantes. Narrative 11/23/2024 2:52 PM EDT XR KNEE 4 OR MORE VIEWS (LEFT), XR TIBIA FIBULA 2 VIEWS (LEFT) Referring clinician's provided indication for this examination in Epic: Pain; S/P Fall COMPARISON: None. FINDINGS: No fracture. Normal alignment. Normal joint spaces. Trace suprapatellar effusion. No lytic or blastic lesion. Visualized portion of the ankle appears normal. No significant soft tissue swelling. Procedure Note Tad Thompson MD, MPH - 11/23/2024 XR KNEE 4 OR MORE VIEWS (LEFT), XR TIBIA FIBULA 2 VIEWS (LEFT) Referring clinician's provided indication for this examination in Epic:Pain; S/P Fall COMPARISON: None. FINDINGS: No fracture. Normal alignment. Normal joint spaces. Trace suprapatellareffusion. No lytic or blastic lesion. Visualized portion of the ankleappears normal. No significant soft tissue swelling. IMPRESSION: No fracture or dislocation in the knee and tibia and fibula. Trace kneeeffusion. ATTESTATION: Moshe Esquivel as teaching physician, have reviewed theimages for this case and if necessary edited the report originally createdby Ace Talamantes. Abdias Garcia MD IMG XR LOWER EXTREMITY Final Re sult from Last 3 Months Insurance [facility] [employer] PPO Care Teams Program Production Specialist Relationship Specialty Start Date End Date Moni Benitez PA [address] [facility] [address] [place] [address] PCP - General Physician Desolderer 11/23/24 Additional Source Comments The information contained in this document represents components of the legal health record. It is not the complete legal health record.[facility]
== END 2024-12-08 09:40 | disposition home or self-care (01) ==
LOC: HO.HMCFM 08:47
PROVIDERS: PCP Physician Assistant; Visit Provider Physician Assistant
DX: M25.562 Pain in left knee (principal); F90.9 Attention-deficit hyperactivity disorder, unspecified type

== ENCOUNTER 2024-12-22 09:39 | Outpatient (AMB) | payer OTHER, SELFPAY ==
--- NOTE | 2024-12-22 09:45 | MHC.PC.OV ---
Vital Signs 12/22/24 09:49 Height 5 ft 11.5 in Weight 219 lb 4 oz BMI 30.1 BP 124/66 Blood Pressure Location Lt brachial Position Sitting Respiration 16 Pulse 81 Pulse Source Pulse Oximeter Temp 97.8 F Temp Source Oral Pulse Oximetry (%) 99 Oxygen Delivery Method Room Air Intake Visit Reasons: work comp injury Intake Note: patient here for work comp-injury Manufacturing Operator Required: No Allergies No Known Allergies Allergy (Verified 12/22/24 09:48) Medication List - Last Reconciled 12/22/24 by Moni Benitez PA-C Tobacco use date assessed: 12/22/24 Dental Screening Dental Screen Date: 12/22/24 Did you have a dental visit in the last 12 months?: No Did you have a dental problem in the last 6 months where you did not have access to dental care?: No Was dental information given to patient?: Yes HPI work comp injury HPI Details Pt is a 29 y/o who presents today for workman comp injury. Msk: fell off a ladder about 5-6 steps up at work on 11/23. He went to [facility] and they did do xrays of the left leg and knee. He has since followed with [facility] and states that they put him in a brace. He says it swelling has resolved but he does intermittently get some anterior discomfort. He also gets a popping sensation that has not been present before. No instability. No prior surgeries. The brace does appear to be helpful. He saw on light duty. He is going to wait to talk to ortho about possibly doing physical therapy. He has follow up on 01/05 with ortho.. 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 Current occupational exposures/hazards: No Cognitive needs: No Hearing needs: No Vision needs: Yes (glasses) Questionnaire Thrive Questionnaire Date Thrive assessed: 05/12/24 I am a: Patient What is your living situation today?: I have a steady place to live Within the past 12 months, did the food you bought not last and you didn't have the money to get more?: Never true Within the past 12 months, did you worry whether your food would run out before you got money to buy more?: Never true Do you have trouble paying for medicines?: No Do you have trouble getting transportation to medical appointments?: No Do you have trouble paying your heating and electricity bill?: No Do you have trouble taking care of your child, family member or friend?: No Do you have trouble with day-to-day activities such as bathing, preparing meals, shopping, managing finances, etc.?: No Are you currently unemployed and looking for a job?: No Are you interested in more education?: No Please select the resources that you would like help with: None Currently or been in a relationship where the following occur: No concerns reported THRIVE Score: 0 Physical exam (Primary Care) Vital Signs: Last Vital Signs Temp 97.8 F 12/22/24 09:49 Pulse 81 12/22/24 09:49 Resp 16 12/22/24 09:49 BP 124/66 12/22/24 09:49 Pulse Ox 99 12/22/24 09:49 Oxygen Delivery Method Room Air 12/22/24 09:49 BMI result Body Mass Index 30.1 Tobacco/Smoking Status: Tobacco use Status Tobacco use date assessed 12/22/24 12/22/24 09:51 Patient Tobacco Use Status Current everyday Tobacco 12/22/24 09:47 e-Cigarette/Vaping Use Never Used 12/22/24 09:47 Thrive Assessment: Date of Thrive Assessment Date Thrive assessed 05/12/24 12/22/24 09:47 Currently or been in a relationship where the following occur: No concerns reported Const Orientation/consciousness: patient oriented x3 HENMT Ears: hearing grossly normal bilaterally Resp Auscultation: clear to auscultation bilaterally Cardio Rate: regular rate Rhythm: regular rhythm Heart sounds: S1 normal heart sound present and S2 normal heart sound present Skin General skin exam: no rashes or lesions noted Neuro General: patient oriented x3, gait normal and no focal motor deficits Extrem Other: Left knee in brace. General: Yes normal to inspection and Yes full ROM Coding Level of Care Code Est Pt Level 3 (59722) Diagnoses Left knee pain M25.562 Assessment & Plan Assessment & Plan (1) Left knee pain: Code(s): M25.562 - Pain in left knee Category: Medical Plan: Continue follow with ortho. Continue with the brace. Patient has an updated work note. Medications: New dextroamphetamine-amphetamine 10 mg (Adderall) administer doses at least 4-6 hours apart; Partial Fill upon patient request. 10 mg PO BID 60 tabs 0RF 30 days
[2024-12-22 09:49] VITALS: BP 124/66; PULSE 81; RESP 16; TEMP 36.6; O2SAT 99; BMI 30.1
--- OUTSIDE RECORDS SUMMARY | 2024-12-22 10:20 | XMS_ITS | Clinical Summary ---
Author Organization [facility] Address [address] [place] [address] [place] [phone] Phone Care Team Providers Care Webbing Tacker Name Role Phone Moni Benitez Primary Care Provider [phone]- [phone] Allergies No known active allergies Medications lisdexamfetamin e (VYVANSE) 30 MG capsule Take 30 mg by mouth every morning. Active oxyCODONE 5 MG immediate release tablet Take 1 tablet (5 mg total) by mouth every 4 (four) hours as needed for pain (specific location in comments). Partial fill ok 5 tablet 11/29/19 25 Encounters Date Type Department Care Team Description 12/08/2024 11:29 AM EDT - 12/08/2024 11:59 PM EDT Hospital Encounter [address] [address] Reyes Hernandez PA-C Discharge Disposition: Home or Self Care 12/08/2024 11:15 AM EDT Office Visit [facility] [address] [place] [phone] Reyes Hernandez PA-C Sprain of lateral collateral ligament of left knee, initial encounter (Primary Dx); Pain and swelling of knee, left 11/23/2024 1:02 PM EDT - 11/23/2024 4:29 PM EDT Emergency [facility] [address] [place] [address] Discharge Disposition: Home or Self Care from [...] 11/23/2024 1:23 PM EDT Plan of Treatment Upcoming Encounters Date Type Department Care Team (Late st Contact Info) Description 01/05/2025 2:00 PM EDT Office Visit [facility] [address] [place] [phone] Fouzia Tirado PA-C [address] [place] [address] [facility] [place] [address] Health Maintenance Due Date Last Done Comments DEPRESSION SCREENING 2005 SMOKING Hx and SMOKELESS TOBACCO SCREENING 2006 HEPATITIS C SCREENING 2011 HIV ONE-TIME SCREENING (18-65 YEARS) 2011 PNEUMOCOCCAL VACCINES (0-49 years) (1 of 2 - PCV) 2012 COVID-19 VACCINE ( - 2023- season) 2024 Adult Td,Tdap Booster 09/25/2032 09/25/2022 , 03/26/2010, 09/13/2002 HIB VACCINES Completed 07/23/1995, 09/08, 1993, Additional history exists MENINGOCOCCAL VACCINES (ACWY) Aged Out 07/23/2007 No longer eligible based on patient's age to complete this topic HEPATITIS A VACCINES Aged Out No long er eligible based on patient's age to complete this topic MENINGOCOCCAL VACCINES (B) Aged Out N o longer eligible based on patient's age to complete this topic Medical Devices Not on file Procedures Procedure Name Priority Date/Time Associated Diagnosis Comments XR KNEE 4 OR MORE VIEWS (LEFT) Routine 12/08/2024 11:41 AM EDT Pain and swelling of knee, left XR TIBIA FIBULA 2 VIEWS (LEFT) Routine 11/23/2024 2:23 PM EDT XR KNEE 4 OR MORE VIEWS (LEFT) Routine 11/23/2024 1:25 PM EDT from Last 3 Months Results * XR KNEE 4 OR MORE VIEWS (LEFT) (12/08/2024 11:41 AM EDT) Narrative SYSTEMGENERATED, DOCUMENTATION - 12/08/2024 11:41 AM EDT This image report has been auto-finalized and has not been read by a Radiologist. Interpretation has been included in the provider encounter note for this date of service. Reyes Hernandez PA-C IMG XR LOWER EXTREMITY Final Result * XR Tibia Fibula 2 Views (Left) [...] edited the report originally createdby Ace Talamantes. us Liana Hernandez PA-C IMG XR LOWER EXTREMITY [...] edited the report originally createdby Ace Talamantes. us Abdias Garcia MD IMG XR LOWER EXTREMITY Final Re sult from Last 3 Months Insurance [facility] STATE PPO Care Teams Webbing Tacker Relationship Specialty Start Date End Date Moni Benitez PA [address] [phone] PCP - General Physician Freezer Machine Operator 11/23/24 Additional Source Comments The information contained in this document represents components of the legal health record. It is not the complete legal health record.[facility]
--- OUTSIDE RECORDS SUMMARY | 2024-12-22 10:20 | XMS_ITS | Clinical Summary ---
Author Organization [facility] ity Address [address] [place] [address] Care Team Providers Care Pipelines Supervisor Name Role Phone Unavailable Primary Care Provider [...]
== END 2024-12-22 10:36 | disposition home or self-care (01) ==
LOC: HO.HMCFM 09:40
PROVIDERS: PCP Physician Assistant; Visit Provider Physician Assistant
DX: M25.562 Pain in left knee (principal); Z04.2 Encounter for examination and observation following work accident

== ENCOUNTER → 2024-12-22 09:39 | Outpatient (BNVA) | payer OTHER, SELFPAY | PROVIDERS: PCP Physician Assistant; Visit Provider Physician Assistant | DX: M25.562 Pain in left knee (principal); W11.XXXD Fall on and from ladder, subsequent encounter | CPT/HCPCS: 99212 ==

== ENCOUNTER 2025-03-30 10:07 | Outpatient (AMB) | payer BC, SELFPAY ==
[2025-03-30 10:16] VITALS: BP 112/62; PULSE 96; RESP 14; TEMP 36.7; O2SAT 98; BMI 27.8
--- NOTE | 2025-03-30 10:16 | MHC.PC.OV ---
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 General: He has lost weight with diet and exercise. His weight has been stable around 205. He has been cooking for himself, reducing portions and increasing physical activity. Psych: He has a hx of anxiety and adhd in childhood and was on medication in the past but can not recall the name of it. He states that he lacks motivation at times and struggles with focus and attention to detail. He trialed Wellbutrin but did not not noticed any symptom improvement. He was started on Vyvanse and feels that it is overall helpful but at home he noticed some increased irritability with it. He is tolerating the Adderall but taking it twice a day does seem to cause issues with sleep. He states that the 10 mg feels like it wears off partway through the day. 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 Current occupational exposures/hazards: No Cognitive needs: No Hearing needs: No Vision needs: Yes (glasses) Questionnaire Thrive Questionnaire Date Thrive assessed: 05/12/24 I am a: Patient What is your living situation today?: I have a steady place to live Within the past 12 months, did the food you bought not last and you didn't have the money to get more?: Never true Within the past 12 months, did you worry whether your food would run out before you got money to buy more?: Never true Do you have trouble paying for medicines?: No Do you have trouble getting transportation to medical appointments?: No Do you have trouble paying your heating and electricity bill?: No Do you have trouble taking care of your child, family member or friend?: No Do you have trouble with day-to-day activities such as bathing, preparing meals, shopping, managing finances, etc.?: No Are you currently unemployed and looking for a job?: No Are you interested in more education?: No Please select the resources that you would like help with: None Currently or been in a relationship where the following occur: No concerns reported THRIVE Score: 0 AUDIT C Alcohol Use Questionnaire (AUDIT-C) 1. How often do you have a drink containing alcohol?: Monthly or less 2. How many drinks containing alcohol do you have on a typical day when you are drinking?: 1 or 2 3. How often do you have six or more drinks on one occasion?: Never Total Score: 1 Physical exam (Primary Care) Vital Signs: Last Vital Signs Temp 98.1 F 03/30/25 10:16 Pulse 96 03/30/25 10:16 Resp 14 03/30/25 10:16 BP 112/62 03/30/25 10:16 Pulse Ox 98 03/30/25 10:16 Oxygen Delivery Method Room Air 03/30/25 10:16 BMI result Body Mass Index 27.8 Tobacco/Smoking Status: Tobacco use Status Tobacco use date assessed 03/30/25 03/30/25 10:21 Patient Tobacco Use Status Current everyday Tobacco 03/30/25 10:21 e-Cigarette/Vaping Use Never Used 03/30/25 10:21 Thrive Assessment: Date of Thrive Assessment Date Thrive assessed 05/12/24 03/30/25 10:21 Currently or been in a relationship where the following occur: No concerns reported Const Orientation/consciousness: patient oriented x3 HENMT Ears: hearing grossly normal bilaterally Neck Thyroid: Thyroid normal Lymphatic: no lymphadenopathy noted Resp Auscultation: clear to auscultation bilaterally Cardio Rate: regular rate Rhythm: regular rhythm Heart sounds: S1 normal heart sound present and S2 normal heart sound present Skin General skin exam: no rashes or lesions noted Neuro General: patient oriented x3, gait normal and no focal motor deficits Coding Level of Care Code Est Pt Level 3 (79222) Complex EM visit Add On G2211 Diagnoses ADHD (attention deficit hyperactivity disorder) F90.9 Assessment & Plan Assessment & Plan (1) ADHD (attention deficit hyperactivity disorder): Code(s): F90.9 - Attention-deficit hyperactivity disorder, unspecified type Category: Medical Plan: Adjust prescription to 20 mg Labs ordered to be rechecked before next appointment. We will recheck in 4 months. Sooner if anything worsens or changes. Patient understands and agrees with the plan. Orders: Orders Complete Blood Count Auto Diff Today F90.9 - Attention-deficit hyperactivity disorder, unspecified type, R73.03 - Prediabetes TSH reflex Free T4 Today F90.9 - Attention-deficit hyperactivity disorder, unspecified type, R73.03 - Prediabetes Comprehensive [place]. Panel Fast Today F90.9 - Attention-deficit hyperactivity disorder, unspecified type, R73.03 - Prediabetes Hemoglobin A1c Today R73.01 - Impaired fasting glucose Medications: New dextroamphetamine-amphetamine 20 mg (Adderall) Partial Fill upon patient request. 20 mg PO DAILY 30 tabs 0RF 30 days Discontinued dextroamphetamine-amphetamine 10 mg (Adderall) administer doses at least 4-6 hours apart; Partial Fill upon patient request. Discontinued Reason: Doctor's Order 10 mg PO BID 30 days 60 tabs 0RF
--- OUTSIDE RECORDS SUMMARY | 2025-03-30 14:53 | XMS_ITS | Clinical Summary ---
Author Organization [facility] Address [address] [place] [phone] Phone Care Team Providers Care Transition Rn Name Role Phone Moni Benitez Primary Care Provider [phone]- [phone] Allergies No known active allergies Medications lisdexamfetamine (VYVANSE) 30 MG capsule Take 30 mg by mouth every morning. Active Encounters Date Type Department Care Team Description 01/05/2025 2:23 PM EDT - 01/05/2025 11:59 PM EDT Hospital Encounter [address] [address] Fouzia Tirado PA-C Discharge Disposition: Home or Self Care 01/05/2025 2:00 PM EDT Office Visit [facility] [address] [place] [id number] Fouzia Tirado PA-C Freeman, Jacob Nathan, PA-C Sprain of lateral collateral ligament of left knee, subsequent encounter (Primary Dx); Pain and swelling of knee, left 01/05/2025 Telephone [facility] [address] [place] [address] [phone] Reyes Hernandez PA-C wc auth from Last 3 Months Social History Tobacco [...] years) (1 of 2 - PCV) 2012 INFLUENZA VACCINE (#1) 2024 05/12/2024 COVID-19 VACCINE (1 - 2024- season) 2025 Adult Td,Tdap Booster 09/25/2032 09/25/2022 , 03/26/2010, 09/13/2002 HIB VACCINES Completed 07/23/1995, 09/08, 1993, Additional history exists IPV VACCINES Completed 06/05/1997, 12/09, 1993, Additional history exists MENINGOCOCCAL VACCINES (ACWY) [...] Priority Date/Time Associated Diagnosis Comments XR KNEE 3 VIEW (LEFT) Routine 01/05/2025 2:29 PM EDT Sprain of lateral collateral ligament of left knee, subsequent encounter from Last 3 Months Results * XR KNEE 3 VIEW (LEFT) (01/05/2025 2:29 PM EDT) Narrative SYSTEMGENERATED, DOCUMENTATION - 01/05/2025 2:29 PM EDT This image report has been auto-finalized and has not been read by a Radiologist. Interpretation has been included in the provider encounter note for this date of service. Fouzia Tirado PA-C IMG XR LOWER EXTREMITY F inal Result from Last 3 Months Insurance [address] [place] [id number] [facility] OUT [facility] PPO BLUE CROSS OUT OF STATE PPO BLUE CROSS OUT OF STATE PPO BLUE [place]OSS OUT OF STATE PPO BLUE HOPE OUT OF STATE PPO [facility] OUT OF STATE PPO [employer] Care Teams Transition Rn Relationship Specialty Start Date End Date Moni Benitez PA [address] [place] [address] [phone] PCP - General Physician Semiconductor Technician 11/23/24 Additional Source Comments The information contained in this document represents components of the legal health record. It is not the complete legal health record.[facility]
== END 2025-03-30 10:34 | disposition home or self-care (01) ==
LOC: HO.HMCFM 10:08
PROVIDERS: PCP Physician Assistant; Visit Provider Physician Assistant
DX: F90.9 Attention-deficit hyperactivity disorder, unspecified type (principal)